=== PATIENT | female | born 1970 | race Caucasian/White ===

== ENCOUNTER 2019-11-17 18:22 | Inpatient (IN) | payer MEDICAID ==
[~2019-11-17] VITALS: Ht 162.6 cm; Wt 73.5 kg
[2019-11-17] MEDS ORDERED: QUET200T PO (19:07)
[2019-11-17] MEDS ORDERED: QUET25TA PO (19:07)
[2019-11-17] MEDS ORDERED: INFLUENZA VIRUS VACCINE QVS 2019-20 (3YR+)/PF 60 MCG/0.5 ML SYRINGE IM ONE (19:15)
[2019-11-17] MEDS ORDERED: PNEUMOCOCCAL VACCINE POLYVALENT 0.5 ML VIAL [PPSV23] IM ONE (19:15)
[2019-11-17] MEDS ORDERED: LORazepam 2 MG TABLET PO PRN (19:30)
[2019-11-17] MEDS ORDERED: HALOPERIDOL 5 MG TABLET PO PRN (19:30)
[2019-11-17] MEDS ORDERED: ZOLPIDEM TARTRATE 10 MG TABLET PO PRN (19:30)
[2019-11-17] MEDS ORDERED: PERMETHRIN 5% 60 GM CREAM TP ONE (20:45)
[2019-11-17 20:54] VITALS: BP 181/90
[2019-11-17] MEDS: CloNIDine HCL 0.1 MG TABLET PO PRN (21:24)
[2019-11-17] MEDS ORDERED: PERMETHRIN 1% 60 ML LOTION TP ONE (23:30)
[2019-11-18] VITALS (7 sets, daily range): BP systolic 138–162; BP diastolic 72–101
[2019-11-18 08:25] LABS: BASOPHILS % (AUTO) 0.7 % (0.0-2.0); EOSINOPHILS % (AUTO) 2.7 % (1.0-6.0); HEMATOCRIT 39.7 % (36-46); HEMOGLOBIN 12.4 g/dL (12.0-16.0); LYMPHOCYTES # (AUTO) 1.3 K/uL (1.0-4.8); LYMPHOCYTES % (AUTO) 19.1 % (22.0-44.0); MEAN CORPUSCULAR HEMOGLOBIN 22.9 pg (26.0-34.0); MEAN CORPUSCULAR HGB CONC 31.3 G/dL (31.0-37.0); MEAN CORPUSCULAR VOLUME 73 fL (80-100); MONOCYTES # (AUTO) 0.4 K/uL (0.1-1.0); MONOCYTES % (AUTO) 6.4 % (2.0-9.0); NEUTROPHILS # (AUTO) 4.9 K/uL (1.8-7.7); NEUTROPHILS % (AUTO) 71.1 % (40.0-70.0); PLATELET COUNT (AUTO) 317 K/uL (150-450); RED BLOOD CELL COUNT(AUTO) 5.43 MIL/uL (4.00-5.20); RED CELL DISTRIBUTION WIDTH 19.2 % (11.5-14.5)
[2019-11-18] MEDS: SULFAMETHOX/TRIMETH DS 800-160 MG/TABLET PO SCH ×2 (08:55→16:06)
[2019-11-18] MEDS: METOPROLOL SUCCINATE 50 MG ER TABLET PO SCH ×2 (08:56→16:06)
[2019-11-18] MEDS: LISINOPRIL 10 MG TABLET PO SCH (08:56)
[2019-11-18 09:04] LABS: HEMOGLOBIN A1C 5.8 % (3.8-5.6)
[2019-11-18 10:06] LABS: ALANINE AMINOTRANSFERASE 20 U/L (12-78); ALBUMIN 3.2 g/dL (3.4-5.0); ALKALINE PHOSPHATASE 65 U/L (46-116); ANION GAP 9 mmol/L (8-16); ASPARTATE AMINOTRANSFERASE 16 U/L (15-37); BILIRUBIN,TOTAL 0.3 mg/dL (0.1-1.0); CALCIUM, TOTAL 8.9 mg/dL (8.8-10.5); CARBON DIOXIDE 25 mmol/L (22-29); CHLORIDE 104 mmol/L (98-107); CHOL/HDL RATIO 3.1 (3.9-5.7); CHOLESTEROL 170 mg/dL (131-200); CREATININE 0.76 mg/dL (0.60-1.30); FREE T4 (FREE THYROXINE) 0.91 ng/dL (0.76-1.46); GLOMERULAR FILTR. RATE CALC > 60 mL/min (>60); GLUCOSE,RANDOM 85 mg/dL (70-110); HCG,QUANTITATIVE < 1 mIU/mL (0-6); HDL CHOLESTEROL 54 mg/dL (40-60); LDL CHOL (CALC.) 96 mg/dL (0-130); POTASSIUM 4.3 mmol/L (3.5-5.1); SODIUM SERUM 138 mmol/L (136-145); THYROID STIMULATING HORMONE 2.57 uIU/mL (0.36-3.74); TOTAL PROTEIN, SERUM 6.5 g/dL (6.4-8.2); TRIGLYCERIDES 102 mg/dL (15-150); UREA NITROGEN, BLOOD 11 mg/dL (7-18)
[2019-11-18] MEDS ORDERED: PETROLATUM,WHITE 28 GM JELLY TP PRN (10:30)
[2019-11-18] MEDS ORDERED: BENZOCAINE/MENTHOL LOZENGE MM PRN (10:30)
[2019-11-18] MEDS ORDERED: DOCUSATE SODIUM 100 MG CAPSULE PO PRN (10:30)
[2019-11-18] MEDS ORDERED: BACITRACIN 28.4 GM OINTMENT TP PRN (10:30)
[2019-11-18] MEDS ORDERED: CloNIDine HCL 0.1 MG TABLET PO PRN (10:30)
[2019-11-18] MEDS ORDERED: ALBUTEROL SULFATE HFA 90 MCG/PUFF 8 GM INHALER IH PRN (10:30)
[2019-11-18] MEDS ORDERED: MAG HYDROX/AL HYDROX/SIMETH ES 30 ML SUSPENSION UDCUP PO PRN (10:30)
[2019-11-18] MEDS ORDERED: LOPERAMIDE HCL 2 MG CAPSULE PO PRN (10:30)
[2019-11-18] MEDS ORDERED: MAGNESIUM HYDROXIDE SUSPENSION 30 ML UDCUP PO PRN (10:30)
[2019-11-18] MEDS ORDERED: OMEPRAZOLE 20 MG CAPSULE PO PRN (10:30)
[2019-11-18] MEDS ORDERED: ONDANSETRON HCL 4 MG TABLET PO PRN (10:30)
[2019-11-18] MEDS: CloNIDine HCL 0.1 MG TABLET PO PRN (18:19)
[2019-11-18] MEDS: QUEtiapine FUMARATE 200 MG TABLET PO SCH (21:25)
[2019-11-19 00:59] VITALS: BP 118/65
[2019-11-19 03:40] VITALS: BP 115/63
[2019-11-19] MEDS: IBUPROFEN 600 MG TABLET PO PRN ×2 (03:43→16:39)
[2019-11-19 08:16] VITALS: BP 123/75
[2019-11-19] MEDS: QUEtiapine FUMARATE 100 MG TABLET PO SCH (08:39)
[2019-11-19] MEDS: SULFAMETHOX/TRIMETH DS 800-160 MG/TABLET PO SCH ×2 (08:39→16:39)
[2019-11-19] MEDS: LISINOPRIL 10 MG TABLET PO SCH (08:39)
[2019-11-19] MEDS: METOPROLOL SUCCINATE 50 MG ER TABLET PO SCH ×2 (08:39→16:39)
[2019-11-19 16:02] VITALS: BP 131/76
[2019-11-19] MEDS: QUEtiapine FUMARATE 200 MG TABLET PO SCH (20:06)
[2019-11-20] VITALS (10 sets, daily range): BP systolic 108–163; BP diastolic 63–98
[2019-11-20] MEDS: IBUPROFEN 600 MG TABLET PO PRN (00:52)
[2019-11-20] MEDS: METOPROLOL SUCCINATE 50 MG ER TABLET PO SCH ×2 (08:18→16:19)
[2019-11-20] MEDS: SULFAMETHOX/TRIMETH DS 800-160 MG/TABLET PO SCH ×2 (08:18→16:19)
[2019-11-20] MEDS: LISINOPRIL 10 MG TABLET PO SCH (08:18)
[2019-11-20] MEDS: QUEtiapine FUMARATE 100 MG TABLET PO SCH (08:18)
[2019-11-20] MEDS: QUEtiapine FUMARATE 200 MG TABLET PO SCH (20:55)
[2019-11-21] VITALS (7 sets, daily range): BP systolic 122–154; BP diastolic 63–100
[2019-11-21] MEDS: CloNIDine HCL 0.1 MG TABLET PO PRN (04:52)
[2019-11-21] MEDS: LISINOPRIL 10 MG TABLET PO SCH (08:46)
[2019-11-21] MEDS: QUEtiapine FUMARATE 100 MG TABLET PO SCH (08:46)
[2019-11-21] MEDS: SULFAMETHOX/TRIMETH DS 800-160 MG/TABLET PO SCH ×2 (08:46→16:47)
[2019-11-21] MEDS: METOPROLOL SUCCINATE 50 MG ER TABLET PO SCH ×2 (08:46→16:47)
[2019-11-21] MEDS: ACETAMINOPHEN 325 MG TABLET PO PRN (08:47)
[2019-11-21] MEDS: QUEtiapine FUMARATE 200 MG TABLET PO SCH (20:25)
[2019-11-22 04:00] VITALS: BP 128/70
[2019-11-22] MEDS: IBUPROFEN 600 MG TABLET PO PRN (04:03)
[2019-11-22 06:24] VITALS: BP 133/68
[2019-11-22] MEDS: QUEtiapine FUMARATE 100 MG TABLET PO SCH (08:14)
[2019-11-22] MEDS: METOPROLOL SUCCINATE 50 MG ER TABLET PO SCH ×2 (08:14→16:27)
[2019-11-22] MEDS: SULFAMETHOX/TRIMETH DS 800-160 MG/TABLET PO SCH ×2 (08:14→16:27)
[2019-11-22] MEDS: LISINOPRIL 10 MG TABLET PO SCH (08:15)
[2019-11-22 09:03] VITALS: BP 123/71
[2019-11-22 09:10] VITALS: BP 123/71
[2019-11-22 16:03] VITALS: BP 112/64
[2019-11-22] MEDS: QUEtiapine FUMARATE 200 MG TABLET PO SCH (20:06)
[2019-11-22] MEDS: ACETAMINOPHEN 325 MG TABLET PO PRN (22:38)
[2019-11-23 01:07] VITALS: BP 129/66
[2019-11-23] MEDS: QUEtiapine FUMARATE 100 MG TABLET PO SCH (08:10)
[2019-11-23] MEDS: SULFAMETHOX/TRIMETH DS 800-160 MG/TABLET PO SCH (08:10)
[2019-11-23] MEDS: METOPROLOL SUCCINATE 50 MG ER TABLET PO SCH (08:10)
[2019-11-23] MEDS: LISINOPRIL 10 MG TABLET PO SCH (08:10)
[2019-11-23] MEDS ORDERED: BACTDSB PO (08:19)
[2019-11-23] MEDS ORDERED: METO100XL PO (08:21)
[2019-11-23] MEDS ORDERED: LISI-661 PO (08:21)
[2019-11-23 08:24] VITALS: BP 130/79
== END 2019-11-23 09:35 | disposition home or self-care (01) | DRG 750 ==
LOC: EDBD 19:28 → B3A 19:28 → B2S 21:21
PROVIDERS: ADMIT Psychiatry & Neurology Psychiatry; ATTEND Psychiatry & Neurology Psychiatry
DX: F25.9 Schizoaffective disorder, unspecified (principal); R45.851 Suicidal ideations; B86 Scabies; F41.9 Anxiety disorder, unspecified; L02.91 Cutaneous abscess, unspecified; G47.00 Insomnia, unspecified; I10 Essential (primary) hypertension; K59.00 Constipation, unspecified; Z88.0 Allergy status to penicillin; Z79.899 Other long term (current) drug therapy
CPT/HCPCS: 70450; 83036; 84439; 84443